=== PATIENT | male | born 1980 | race Caucasian/White ===

== ENCOUNTER 2020-07-24 22:33 | Emergency (ER) | payer OTHER ==
[2020-07-25] MEDS ORDERED: PROPOFOL 20 ML ONE (00:07)
[2020-07-25] MEDS ORDERED: Triple Antibiotic Oint 1 GM Packet ONE (00:54)
== END 2020-07-25 01:23 | disposition home or self-care (01) ==
LOC: ERS 22:33
DX: S52.572A Other intraarticular fracture of lower end of left radius, initial encounter for closed fracture (principal); S52.612A Displaced fracture of left ulna styloid process, initial encounter for closed fracture; S80.212A Abrasion, left knee, initial encounter; S80.211A Abrasion, right knee, initial encounter; S00.81XA Abrasion of other part of head, initial encounter; M10.9 Gout, unspecified; I10 Essential (primary) hypertension; E78.5 Hyperlipidemia, unspecified; V00.141A Fall from scooter (nonmotorized), initial encounter
CPT/HCPCS: 25605; 70450; 99156; J2704